=== PATIENT | female | born 1960 | race Caucasian/White ===

== ENCOUNTER 2018-09-24 08:28 | Emergency (ER) | payer BC ==
[2018-09-24 08:59] VITALS: BP 158/78
--- NOTE | 2018-09-24 09:35 | UC ---
Respiratory Complaint HPI - HPI Summary HPI Summary: cough x 3 days, cough is dry, no sputum + nasal congestion , pnd, mild sob no fever, no chills - History of Current Complaint Chief Complaint: UCRespiratory Stated Complaint: UPPER RESPITORY,COUGH Time Seen by Provider: 09/24/18 09:28 Hx Obtained From: Patient Hx Last Menstrual Period: 08/30/18 Onset/Duration: Gradual Onset, Lasting Days - 3, Still Present Timing: Constant Severity Initially: Moderate Severity Currently: Moderate Pain Intensity: 0 Character: Cough: Nonproductive Aggravating Factors: Exertion, Deep Breaths Associated Signs And Symptoms: Positive: Dyspnea, URI, Nasal Congestion. Negative: Fever, Chills, Pleuritic Chest Pain, Wheezing, Hemoptysis, Dizziness, Calf Pain, Calf Swelling - Allergies/Home Medications Allergies/Adverse Reactions: Allergies Allergy/AdvReac Type Severity Reaction Status Date / Time No Known Allergies Allergy Verified 09/24/18 08:49 Home Medications: Home Medications D-Methorphan/PE/Acetaminophen [Vicks Dayquil Cold & Flu 10-5-325 mg/15Ml] 1 liq PO PRN 09/24/18 [History] Ferrous Sulfate TAB* 325 mg PO DAILY 09/24/18 [History Confirmed 09/24/18] PMH/Surg Hx/FS Hx/Imm Hx - Additional Past Medical History Additional PMH: anemia - Surgical History Surgical History: Yes Surgery Procedure, Year, and Place: LEFT PATELLA CRUSH REPAIR. TUBAL LIGATION. D&C TWICE - Family History Known Family History: Negative: Diabetes Family History: NON CONTRIBUTORY - Social History Alcohol Use: Occasionally Substance Use Type: None Smoking Status (MU): Never Smoked Tobacco - Immunization History Most Recent Influenza Vaccination: don't usually get Review of Systems All Other Systems Reviewed And Are Negative: Yes Constitutional: Positive: Negative Skin: Positive: Negative Eyes: Positive: Negative ENT: Positive: Nasal Discharge Respiratory: Positive: Cough Cardiovascular: Positive: Negative Is Patient Immunocompromised?: No Physical Exam Triage Information Reviewed: Yes Appearance: Well-Appearing, No Pain Distress, Well-Nourished Vital Signs: Initial Vital Signs Temp 98.7 F 09/24/18 08:51 Pulse 71 09/24/18 08:51 Resp 16 09/24/18 08:51 BP 158/78 09/24/18 08:51 Pulse Ox 98 09/24/18 08:51 Vital Signs Reviewed: Yes Eye Exam: Normal Eyes: Positive: Conjunctiva Clear ENT: Positive: Normal ENT inspection, Hearing grossly normal, Nasal congestion, Nasal drainage Neck: Positive: Supple, Nontender, No Lymphadenopathy Respiratory: Positive: Chest non-tender, Lungs clear, Normal breath sounds Cardiovascular: Positive: RRR, No Murmur, Pulses Normal Skin Exam: Normal UC Diagnostic Evaluation - Laboratory O2 Sat by Pulse Oximetry: 98 Respiratory Course/Dx - Differential Dx/Diagnosis Provider Diagnosis: URI (upper respiratory infection) Discharge - Sign-Out/Discharge Documenting (check all that apply): Patient Departure All imaging exams completed and their final reports reviewed: No Studies - Discharge Plan Condition: Stable Disposition: HOME Patient Education Materials: Upper Respiratory Infection (DC) Referrals: Chica Pisano NP [Primary Care Provider] - If Needed - Billing Disposition and Condition Condition: STABLE Disposition: Home
== END 2018-09-24 09:39 | disposition home or self-care (01) ==
LOC: UCCORT 08:28
DX: J06.9 Acute upper respiratory infection, unspecified (principal); Z79.899 Other long term (current) drug therapy
CPT/HCPCS: 99211; G0463